=== PATIENT | female | born 1955 | race Caucasian/White ===

== ENCOUNTER 2019-04-28 00:10 | Day surgery (SDC) | payer MEDICARE, MEDICAID, SELFPAY ==
[2019-04-13 14:30] VITALS: BMI 43.0
[2019-04-27 06:22] VITALS: BP 148/92; PULSE 82; RESP 18; TEMP 36.9; O2SAT 100
[2019-04-28] VITALS (8 sets, daily range): BP systolic 129–150; BP diastolic 75–91; PULSE 73–86; RESP 14–15; TEMP 36.9; O2SAT 92–100
[2019-04-28 06:48] LABS: Urine Cotinine NEGATIVE
--- NOTE | 2019-04-28 06:49 | WPDANESEPPF ---
Anes - Initial Pre Proc Eval Procedure: Operation Date: 04/28/19 07:30 Proposed Procedures p Bilateral Breast Reduction(Bilateral) - Dom Maya MD Date/Time: 04/28/19 06:49 Surgeon: Dom Maya MD Pre Op Diagnosis: Macromastia Patient Data Age: 63 Gender: F Height: 5 ft Weight: 100 kg Allergies Allergy/AdvReac Type Severity Reaction Status Date / Time No Known Allergies Allergy Unknown NONE Verified 04/13/19 14:53 Home Medications Medication Instructions Recorded Confirmed Type albuterol sulfate 90 mcg/actuation 2 puff INHALATION Q4H PRN gm 04/12/19 04/17/19 History aerosol inhaler citalopram 20 mg tablet 20 mg PO DAILY tablet 04/12/19 04/17/19 History ferrous sulfate 325 mg (65 mg 325 mg PO BID tablet 04/12/19 04/17/19 History iron) tablet fluticasone furoate 200 1 inhalation INHALATION DAILY 04/12/19 04/17/19 History mcg-vilanterol 25 mcg/dose inhalation powder hydrocodone 5 mg-acetaminophen 325 1 tablet PO Q6H PRN #15 tablet 04/12/19 04/17/19 Rx mg tablet levothyroxine 125 mcg tablet 125 mcg PO DAILY tablet 04/12/19 04/17/19 History montelukast 10 mg tablet 10 mg PO DAILY 04/12/19 04/17/19 History nitroglycerin 0.4 mg sublingual 0.4 mg SUBLINGUAL Q5M PRN 04/12/19 04/17/19 History tablet ondansetron HCl 4 mg tablet 4 mg PO Q8H PRN #30 tablet 04/12/19 04/17/19 Rx pantoprazole 40 mg tablet,delayed 40 mg PO BID 04/12/19 04/17/19 History release verapamil 80 mg tablet 80 mg PO BID tablet 04/12/19 04/17/19 History fluticasone propionate [Flonase 1 spray INTRANASAL BID 04/17/19 04/17/19 History Allergy Relief] icosapent ethyl [Vascepa] 1 g PO DAILY 04/17/19 04/17/19 History Laboratory Tests 04/28/19 06:32 Cotinine Negative Patient hx anesthesia problems: none Family hx anesthesia problems: none PMFSH Past Medical History Medical History Asthma Eczema Renal cancer Social History Social History Smoking status: Current every day smoker Alcohol intake: never Anes - Eval Final PreProcedure Day of Procedure 04/28/19 06:49 Patient weight: morbidly obese Heart: regular rate and rhythm Lungs: decreased breath sounds Airway: Mallampati scale class II Neurological: alert and oriented and other (reads lips) Last oral intake: >/= 8 hours ASA classification: III Emergent: no Anesthetic plan: proceed Anesthesia type and monitoring: general LMA and standard monitoring Informed Consent: The patient's anesthetic plan and its attendant risks and benefits were discussed with the patient/family/POA. Questions were solicited and answers provided to the satisfaction of the patient/family/POA.
--- NOTE | 2019-04-28 06:59 | WPDHPUPDATE1 ---
History and Physical Update Update Date/Time: 04/28/19 06:59 History and Physical has been reviewed, including an updated exam of the patient. There are NO changes in the patient's condition. She is consistent again today that she does not want pedicle or free nipple graft of NAC. She has been consistent with this consistently and has never wavered. She states this is functional and is not concerned about the NAC. Risks, benefits, and alternatives have been discussed and questions answered. Patient agrees to proceed with procedure.
[2019-04-28] MEDS: LACTATED RINGERS 1,000 ML 30 ML IV CONT ×3 (07:00→10:45)
[2019-04-28] MEDS: ceFAZolin 2 GM/D5W 50 ML 2 GM/50 ML BAG IVPB (07:28)
--- NOTE | 2019-04-28 10:01 | PM.PROC ---
Procedure Note - Detailed Date of procedure: 04/28/19 Pre-op diagnosis: Macromastia Post-op diagnosis: same Procedure performed: Bilateral breast reduction Description of procedure: She is here today for bilateral breast reduction. Previously and again today the risks, benefits, alternatives were discussed in extensive detail. I wanted her to be very realistic about the risks involved as well as expectations. We discussed aftercare and what to monitor for. She understands we can never guarantee final breast size and there will always be asymmetry. She was very clear about her wishes that she would like to be as small as reasonably possible. She says she cannot be too small. For her this is truly a functional surgery. She does not want to save the nipple-areolar complex she wants this removed. She states she does not even want to risk any complications of this and does not care as to her this is completely a functional surgery. She has never wave heard on this decision throughout. She is accompanied by family who says she has been solid in her decision since she initially spoke about this and has not wave heard at all. Made sure answered all of her questions to her satisfaction today and consent was obtained. She was marked in the preoperative holding area with their verification. The patient was taken to the operating room placed supine on the operating table. Anesthesia was provided by anesthesiology. She was prepped and draped in a standard sterile fashion. A surgical time-out was taken. Stab incisions were made and I tumessed with a tumescent solution. I made the incisions along the planned excision lines. The breast was removed in the volumes as below. At this point copiously irrigated with saline solution and verified a strict hemostasis. I reapproximated the pillars using a 2-0 PDS as well as along the IMF. I tailor tacked the breast into place with kenneth. She was placed in a sitting position. I marked out area of concern and did a little suction lipectomy of both lateral breast to provide symmetry. This was with a 4 mm basket cannula using S.A.F.E. technique. Removed dog ears. I closed the vertical incision with 3-0 Monocryl in the IMF with 3-0 stratafix. Then everything was closed using a running subcuticular 4-0 Monocryl followed by Steri-Strips. A dressing was placed followed by surgical bra. Patient was awoke and taken to PACU without difficulty. All instrument sponge counts were correct at the end of the case. Surgeon: Dom Maya MD Estimated blood loss (mL): 100 Drains: No Packing: No Pathology: yes (Breast tissue) Complications: No immediate complications Condition: stable Disposition: PACU Findings: Removal: Right: 2601 grams Left: 2708 grams
--- NOTE | 2019-04-28 13:25 | SUR.PHASEII ---
1230 assisted to bathroom per wheelchair.
--- NOTE | 2019-04-28 13:25 | SUR.PHASEII ---
pt very hard of hearing and lip reads,daughter in law able to communICATE WELL.
== END 2019-04-28 12:22 | disposition home or self-care (01) ==
PROVIDERS: Visit Provider Surgery Plastic and Reconstructive Surgery
PROC: 0HBV0ZZ Excision of Bilateral Breast, Open Approach (ICD-10-PCS; CPT 19318; principal; 2019-04-28 07:30)
DX: N62 Hypertrophy of breast (principal); N60.32 Fibrosclerosis of left breast; N60.31 Fibrosclerosis of right breast; N60.42 Mammary duct ectasia of left breast; N60.41 Mammary duct ectasia of right breast; J45.909 Unspecified asthma, uncomplicated; L30.9 Dermatitis, unspecified; F17.210 Nicotine dependence, cigarettes, uncomplicated; Z85.528 Personal history of other malignant neoplasm of kidney; E66.01 Morbid (severe) obesity due to excess calories; Z68.42 Body mass index [BMI] 45.0-49.9, adult
CPT/HCPCS: 19318; 36415; 80307; 88305; A9270; J0131; J0171; J0690; J1100; J2001; J2250; J2405; J2704; J3010; J7120; L8000